=== PATIENT | male | born 1960 | race Caucasian/White ===

== ENCOUNTER 2018-07-02 14:57 | Emergency (ER) | payer BC ==
[2018-07-02] MEDS ORDERED: DIPH/PERTUSS(ACELL)/TETANUS VAC/PF 0.5 ML SYR (>=10YO) IM ONE (15:54)
--- NOTE | 2018-07-02 15:56 | ER Document Report ---
ED Medical Screen (RME) - General Chief Complaint: Finger Injury Stated Complaint: FINGER LACERATION Time Seen by Provider: 07/02/18 15:50 Mode of Arrival: Ambulatory Information source: Patient Notes: pt presents with lac to right index finger with knife at work. pt is right handed, declines pain med, reports finger numb. Deep U shaped laceration noted to right index finger. Unsure of last tetanus. - Related Data Allergies/Adverse Reactions: No Known Allergies Allergy (Unverified 07/02/18 14:59) Past Medical History - Social History Chew tobacco use (# tins/day): No Frequency of alcohol use: None Drug Abuse: None Renal/ Medical History: Denies: Hx Peritoneal Dialysis Physical Exam - Vital signs Vitals: Temp Pulse Resp BP Pulse Ox 97.7 F 59 L 17 158/77 H 100 07/02/18 15:28 07/02/18 15:28 07/02/18 15:28 07/02/18 15:28 07/02/18 15:28 Course - Vital Signs Vital signs: Temp Pulse Resp BP Pulse Ox 97.7 F 59 L 17 158/77 H 100 07/02/18 15:28 07/02/18 15:28 07/02/18 15:28 07/02/18 15:28 07/02/18 15:28 Doctor's Discharge - Discharge Referrals: DUNIA FRAIRE MD [NO LOCAL MD] - Follow up as needed
--- NOTE | 2018-07-02 16:25 | RADIOLOGY REPORT (SQ) ---
EXAM DESCRIPTION: FINGER RIGHT COMPLETED DATE/TIME: 07/02/2018 4:16 pm REASON FOR STUDY: finger lac COMPARISON: None. NUMBER OF VIEWS: Three views. TECHNIQUE: AP, lateral, and oblique images acquired of the right second finger. LIMITATIONS: None. FINDINGS: MINERALIZATION: Normal. BONES: No acute fracture or dislocation. No worrisome bone lesions. SOFT TISSUES: Distal soft tissue injury. No foreign body. OTHER: No other significant finding. IMPRESSION: DISTAL SOFT TISSUE INJURY. NO RADIOPAQUE FOREIGN BODY. NO FRACTURE OR BONY FINDINGS. COMMENT: SITE OF TRAUMA/COMPLAINT MARKED/STAMP COMPLETED: YES. TECHNICAL DOCUMENTATION: JOB ID: [id number] [employer]- All Rights Reserved Reading location - IP/workstation name: [email or web address]
[2018-07-02] MEDS ORDERED: LIDOCAINE 1% INJ-PF (10 MG/ML) 30 ML SDV INJ ONE (18:29)
--- NOTE | 2018-07-02 18:30 | ER Document Report ---
ED General - General Chief Complaint: Finger Injury Stated Complaint: FINGER LACERATION Time Seen by Provider: 07/02/18 15:50 Mode of Arrival: Ambulatory Information source: Patient Notes: 57-year-old [id number] male with hypertension presents with a laceration to his right index finger. Patient states that just prior to arrival he accidentally cut his finger with a clean knife. Tetanus was unknown so updated. Patient is complaining of some numbness at the tip of his finger. Denies any other physical complaints. - HPI Onset: Just prior to arrival Onset/Duration: Sudden Quality of pain: Throbbing Severity: Mild Associated symptoms: None Exacerbated by: Movement Relieved by: Denies Similar symptoms previously: No Recently seen / treated by doctor: No - Related Data Allergies/Adverse Reactions: No Known Allergies Allergy (Unverified 07/02/18 14:59) Past Medical History - General Information source: Patient - Social History Smoking Status: Current Every Day Smoker Cigarette use (# per day): Yes - 15 Chew tobacco use (# tins/day): No Smoking Education Provided: Yes - Smoking cessation counseling was provided for 4 minutes at the bedside Frequency of alcohol use: None Drug Abuse: None Lives with: Spouse/Significant other Family History: Reviewed & Not Pertinent Patient has suicidal ideation: No Patient has homicidal ideation: No - Past Medical History Cardiac Medical History: Reports: Hx Hypertension Renal/ Medical History: Denies: Hx Peritoneal Dialysis Review of Systems - Review of Systems Notes: REVIEW OF SYSTEMS: CONSTITUTIONAL : Denies fever, chills, or sweats. Denies recent illness. Denies weight loss, recent hospitalizations. EENT: Denies visual changes, eye pain. Denies sore throat, oral lesions, difficulty swallowing. CARDIOVASCULAR: Denies chest pain. Denies palpitations. Denies lower extremity edema. RESPIRATORY: Denies cough. Denies shortness of breath, wheezing. GASTROINTESTINAL: Denies abdominal pain or distention. Denies nausea, vomiting, or diarrhea. Denies blood in vomitus, stools, or per rectum. Denies black, tarry stools. Denies constipation. GENITOURINARY: Denies difficulty urinating, painful urination, frequency, blood in urine, testicular pain or penile discharge. MUSCULOSKELETAL: Denies back or neck pain or stiffness. Denies joint pain or swelling. SKIN: + Laceration right distal index finger HEMATOLOGIC : Denies easy bruising or bleeding. LYMPHATIC: Denies swollen glands. NEUROLOGICAL: Denies confusion or altered mental status. Denies loss of consciousness. Denies dizziness or lightheadedness. Denies headache. Denies weakness or paralysis. Denies problems difficulty with ambulation, slurred speech. Denies sensory loss, numbness, or tingling. Denies seizures. PSYCHIATRIC: Denies anxiety or stress. Denies depression, suicidal ideation, or Physical Exam - Vital signs Vitals: Temp Pulse Resp BP Pulse Ox 97.7 F 59 L 17 158/77 H 100 07/02/18 15:28 07/02/18 15:28 07/02/18 15:28 07/02/18 15:28 07/02/18 15:28 - Notes Notes: PHYSICAL EXAMINATION: GENERAL: Well-appearing, well-nourished and in no acute distress. HEAD: Atraumatic, normocephalic. EYES: Pupils equal round and reactive to light, extraocular movements intact, sclera anicteric, conjunctiva are normal. ENT: Nares patent, oropharynx clear without exudates. Moist mucous membranes. NECK: Normal range of motion, supple without lymphadenopathy LUNGS: Breath sounds clear to auscultation bilaterally and equal. No wheezes rales or rhonchi. HEART: Regular rate and rhythm without murmurs ABDOMEN: Soft, nontender, nondistended abdomen. No guarding, no rebound. No masses appreciated. Musculoskeletal: Normal range of motion, no pitting or edema. No cyanosis. NEUROLOGICAL: Cranial nerves grossly intact. Normal speech, normal gait. Normal motor exams PSYCH: Normal mood, normal affect. SKIN: U shaped flap-like laceration to the right index finger. No nailbed involvement. Cap refill less than 2 seconds. Reported decreased sensation of the distal phalanx. Course - Re-evaluation Re-evalutation: Finger X-Ray 07/02/18 15:54 IMPRESSION: DISTAL SOFT TISSUE INJURY. NO RADIOPAQUE FOREIGN BODY. NO FRACTURE OR BONY FINDINGS. Temp Pulse Resp BP Pulse Ox 97.7 F 51 L 16 144/89 H 99 07/02/18 15:28 07/02/18 19:35 07/02/18 19:35 07/02/18 19:35 07/02/18 19:35 07/02/18 22:50 57-year-old male presents with a laceration to his right index finger after trying to hang a door. Patient cut his finger with a knife. He reports a clean bleed. Tetanus was not up-to-date but updated today. Laceration repair was performed without difficulty. I did warn the patient that there was a good possibility that the skin of his fingertip may turn black and off. Patient was placed in a bulky dressing and finger splint. Advised to return to his primary care physician's office or the emergency department in 10 days for suture removal. Patient was evaluated and treated as appropriate for the patient's presenting symptoms and complaint, with consideration of any critical or life threatening conditions that may be associated with their obtained history and exam as noted above. All results were discussed with patient . Patient provided the opportunity to ask questions, and express concerns. Patient was educated on treatments based on their presumed diagnosis as noted above. At this time we will discharge the patient with return precautions and follow-up recommendations. Verbal discharge instructions given a the bedside. Medication warnings reviewed. Patient is in agreement with this plan and has verbalized understanding of return precautions. After careful consideration I feel that that patient can be safely discharged from the emergency department, they were advised to followup with a primary care physician in 2-3 days. Dictation on this chart was performed using voice recognition software and may result in unintended grammatical, spelling, syntax or errors. - Vital Signs Vital signs: Temp Pulse Resp BP Pulse Ox 97.7 F 51 L 16 144/89 H 99 07/02/18 15:28 07/02/18 19:35 07/02/18 19:35 07/02/18 19:35 07/02/18 19:35 - Diagnostic Test Radiology reviewed: Image reviewed, Reports reviewed Procedures - Laceration/Wound Repair Right 2nd digit Time completed: 19:16 Wound length (cm): 4.0 Wound's Depth, Shape: Irregular, Flap Laceration pre-procedure: Sterile PPE donned, Betadine prep applied, Shur-Clens applied Anesthetic type: 1% Lidocaine Volume Anesthetic (mLs): 5 Wound explored: Clean Irrigated w/ Saline (mLs): 500 - Irrigated thoroughly with tap water Wound Repaired With: Sutures Suture Size/Type: 5:0 Number of Sutures: 6 Layer Closure?: No Post-procedure wound care: Sterile dressing applied, Splint applied Post-procedure NV exam normal: Yes - Patient reports decreased sensation along the area of the flap. Cap refill Complications: No Discharge - Discharge Clinical Impression: Elevated blood pressure reading Finger laceration Qualifiers: Encounter type: initial encounter Finger: index finger Damage to nail status: with damage Foreign body presence: without foreign body Laterality: right Qualified Code(s): S61.310A - Laceration without foreign body of right index finger with damage to nail, initial encounter Condition: Good Disposition: HOME, SELF-CARE Instructions: Antibiotic Ointment Protection (OM), Laceration Care (OM), Soap Cleansing (OM), Tetanus Immunization Given ([facility]) Additional Instructions: Please return to your primary doctor, the ED, or an urgent care in 10-12 days for suture removal. Return immediately if you develop spreading redness around the wound, pus from the wound, worsening pain, or a fever of >100.4. Keep the area clean and dry. Wash gently with soap and water twice daily and cover with antibiotic ointment. Forms: Elevated Blood Pressure Referrals: DUNIA FRAIRE MD [NO LOCAL MD] - Follow up as needed
[2018-07-02 20:34] VITALS: BP 144/89
== END 2018-07-02 19:40 | disposition home or self-care (01) ==
LOC: ER 14:57
PROC: 0HQFXZZ Repair Right Hand Skin, External Approach (ICD-10-PCS; principal; 2018-07-02)
DX: S61.310A Laceration without foreign body of right index finger with damage to nail, initial encounter (principal); I10 Essential (primary) hypertension; W26.0XXA Contact with knife, initial encounter; F17.210 Nicotine dependence, cigarettes, uncomplicated
CPT/HCPCS: 99406; 99283; 90471; 73140; 90715; 12002; J3490